=== PATIENT | female | born 1930 | race Caucasian/White ===

== ENCOUNTER 2016-07-03 19:37 | Inpatient (IN) | payer MEDICARE, BC, MEDICAID ==
[~2016-07-03 19:37] MED LIST: ALBUTEROL2.5 MG/3 M INH; ASPIR 8181 M1 PO; CALCIUM 500 +1 EA10 PO; MAGNESIUM OXID400 M1 PO; METOPROLOL TART25 M1 PO; POTASSIUM CHLO20 ME3 PO; TORSEMIDE20 M2 PO; VITAMIN D32000 UNI2 PO; ZOLOFT50 M1 PO
[2016-07-03] MEDS ORDERED: ALLOPURINOL100 M1 PO (20:14)
[2016-07-03] MEDS ORDERED: ACETAMINOPHEN650 MG PR (20:15)
[2016-07-03] MEDS ORDERED: TYLENOL325 M2 PO (20:16)
[2016-07-03] MEDS ORDERED: NITROSTAT0.4 M1 SL (20:17)
[2016-07-03] MEDS ORDERED: MILK OF MAGNESIA PO (20:18)
[2016-07-03] MEDS ORDERED: HYDROCORTISON28.411 TP ×2 (20:18→20:19)
[2016-07-03 20:47] LABS: ARTERIAL BLD GAS O2 SATURATION 98 % (95-98); ARTERIAL PO2 107 mmHg (70-100); BICARBONATE 42 mmol/L (21-28); BLOOD GAS BASE EXCESS 12 mM/L (-/+3); PH 7.24 Units (7.35-7.45)
[2016-07-03 20:50] LABS: ARTERIAL BLOOD GAS PCO2 102 mmHg (32-45)
[2016-07-03 20:51] LABS: ABG CO2 ARTERIAL 45 mmol/L (21-27)
[2016-07-03 22:29] LABS: ARTERIAL BLD GAS O2 SATURATION 99 % (95-98); ARTERIAL PO2 112 mmHg (70-100); BICARBONATE 42 mmol/L (21-28); BLOOD GAS BASE EXCESS 12 mM/L (-/+3); PH 7.27 Units (7.35-7.45)
[2016-07-03 22:30] LABS: ARTERIAL BLOOD GAS PCO2 94 mmHg (32-45)
[2016-07-03 22:31] LABS: ABG CO2 ARTERIAL 45 mmol/L (21-27)
[2016-07-04 00:40] LABS: INR 0.9 INR (0.9-1.1); PROTHROMBIN TIME 10.8 SECONDS (9.0-13.6)
[2016-07-04 03:45] LABS: URINE BILIRUBIN NEGATIVE (NEG); URINE BLOOD MODERATE (NEG); URINE GLUCOSE (UA) NEGATIVE (NEG); URINE KETONE NEGATIVE (NEG); URINE LEUKOCYTE ESTERASE POSITIVE (NEG); URINE NITRITE NEGATIVE (NEG); URINE PROTEIN NEGATIVE (NEG); URINE SPECIFIC GRAVITY 1.015 (1.003-1.030)
[2016-07-04 03:56] LABS: URINE APPEARANCE HAZY; URINE COLOR YELLOW
[2016-07-04 04:34] LABS: URINE WBC 20-50 /[HPF] (0-5)
[2016-07-04 04:35] LABS: URINE BACTERIA 2+; URINE EPITHELIAL CELLS 0-1 /[HPF] (0-10)
[2016-07-04 05:38] LABS: ARTERIAL BLD GAS O2 SATURATION 96 % (95-98); BICARBONATE 43 mmol/L (21-28); BLOOD GAS BASE EXCESS 14 mM/L (-/+3); PH 7.33 Units (7.35-7.45)
[2016-07-04 05:40] LABS: ARTERIAL PO2 77 mmHg (70-100)
[2016-07-04 05:41] LABS: ARTERIAL BLOOD GAS PCO2 84 mmHg (32-45)
[2016-07-04 05:42] LABS: ABG CO2 ARTERIAL 45 mmol/L (21-27)
[2016-07-04 06:59] LABS: BASO % 0.2 % (0-2); EOS % 1.4 % (0-7); EOSINOPHIL ABSOLUTE COUNT 0.2 tho/cmm (0.0-0.7); HCT-HEMATOCRIT 33.6 % (34.0-49.0); HGB-HEMOGLOBIN 9.7 gm/dl (12.0-15.5); IMMATURE GRANULOCYTES ABSOLUTE 0.05 tho/cmm (0-0.03); IMMATURE GRANULOCYTES PERCENT 0.4 % (0-0.3); LYMPH ABSOLUTE COUNT 0.7 tho/cmm (0.8-4.5); MCH (MEAN CORPUSCULAR HGB) 30.8 pg (28.0-32.0); MCV (MEAN CELL VOLUME) 106.7 fl (82.0-96.0); MEAN PLATELET VOLUME 10.1 cmc (9.4-12.4); MONO % 7.5 % (0-12); MONOCYTE ABSOLUTE COUNT 0.9 tho/cmm (0.0-1.2); NEUTROPHIL ABSOLUTE COUNT 10.2 tho/cmm (1.6-8.0); NEUTROPHIL-AUTOMATED 10.2 tho/cmm (1.6-8.0); NEUTROPHILS % 84.5 % (40-80); PLATELET COUNT 254 tho/cmm (150-450); RED BLOOD COUNT 3.15 mil/cmm (4.00-5.20); RED CELL DISTRIBUTION WIDTH 14.3 % (12.4-16.4); WHITE BLOOD COUNT 12.1 tho/cmm (4.0-10.0)
[2016-07-04 07:08] LABS: ALB/GLOB RATIO 0.6 (0.8-2.0); ALBUMIN 2.3 g/dl (3.5-5.0); ALKALINE PHOSPHATASE 74 U/L (33-138); ALT/SGPT 23 U/L (12-78); ANION GAP 7 mmol/L (0-20); AST/SGOT 24 U/L (10-40); BILIRUBIN,TOTAL 0.4 mg/dl (0-1.5); BLOOD UREA NITROGEN 50 mg/dl (6-24); C-REACTIVE PROTEIN 5.5 mg/dl (0-0.9); CALCIUM 9.8 mg/dl (8.5-10.5); CHLORIDE 100 mmol/l (96-110); CREATININE 1.59 mg/dl (0.50-1.10); GLUCOSE 95 mg/dL (70-110); POTASSIUM 4.1 mmol/L (3.7-5.1); SODIUM 146 mmol/L (135-145); eGFR VALUE FOR BLACK 34 mL/Min
[2016-07-04 07:15] LABS: CARBON DIOXIDE-VENOUS 43 mmol/L (22-32)
[2016-07-04 07:23] LABS: MCHC MEAN CORPUSCULAR HGB CONC 28.9 % (32.0-36.0)
[2016-07-04 10:34] LABS: PROCALCITONIN <0.05 ng/ml (0.05-0.09)
[2016-07-05 04:38] LABS: ANION GAP 11 mmol/L (0-20); BLOOD UREA NITROGEN 51 mg/dl (6-24); CALCIUM 9.8 mg/dl (8.5-10.5); CARBON DIOXIDE-VENOUS 37 mmol/L (22-32); CHLORIDE 96 mmol/l (96-110); CREATININE 1.89 mg/dl (0.50-1.10); POTASSIUM 4.2 mmol/L (3.7-5.1); SODIUM 140 mmol/L (135-145); eGFR VALUE FOR BLACK 28 mL/Min
[2016-07-05 04:39] LABS: GLUCOSE 153 mg/dL (70-110)
[2016-07-05 07:23] LABS: ARTERIAL BLD GAS O2 SATURATION 89 % (95-98); BLOOD GAS BASE EXCESS 12 mM/L (-/+3)
[2016-07-05 07:28] LABS: ABG CO2 ARTERIAL 38 mmol/L (21-27); ARTERIAL BLOOD GAS PCO2 50 mmHg (32-45); ARTERIAL PO2 54 mmHg (70-100); BICARBONATE 36 mmol/L (21-28); PH 7.48 Units (7.35-7.45)
[2016-07-05 12:29] LABS: BASO % 0.1 % (0-2); HCT-HEMATOCRIT 31.6 % (34.0-49.0); HGB-HEMOGLOBIN 9.8 gm/dl (12.0-15.5); IMMATURE GRANULOCYTES ABSOLUTE 0.05 tho/cmm (0-0.03); IMMATURE GRANULOCYTES PERCENT 0.4 % (0-0.3); LYMPH % 2.8 % (20-45); LYMPH ABSOLUTE COUNT 0.4 tho/cmm (0.8-4.5); MCH (MEAN CORPUSCULAR HGB) 31.1 pg (28.0-32.0); MEAN PLATELET VOLUME 10.1 cmc (9.4-12.4); MONO % 0.8 % (0-12); MONOCYTE ABSOLUTE COUNT 0.1 tho/cmm (0.0-1.2); NEUTROPHIL ABSOLUTE COUNT 12.4 tho/cmm (1.6-8.0); NEUTROPHIL-AUTOMATED 12.4 tho/cmm (1.6-8.0); NEUTROPHILS % 95.9 % (40-80); PLATELET COUNT 248 tho/cmm (150-450); RED BLOOD COUNT 3.15 mil/cmm (4.00-5.20); RED CELL DISTRIBUTION WIDTH 14.3 % (12.4-16.4); WHITE BLOOD COUNT 12.9 tho/cmm (4.0-10.0)
[2016-07-05 12:30] LABS: MCV (MEAN CELL VOLUME) 100.3 fl (82.0-96.0)
[2016-07-05 16:02] LABS: BODY FLUID TYPE PLEURAL
[2016-07-05 16:03] LABS: BODY FLUID APPEARANCE CLOUDY (CLEAR); BODY FLUID COLOR YELLOW (COLORLESS); BODY FLUID RBC COUNT 4000 cmm (0); BODY FLUID VOLUME 750 ml; BODY FLUID WBC COUNT 569 cmm
[2016-07-05 17:11] LABS: BODY FLUID LYMPHOCYTES 69 %; BODY FLUID MACROPHAGES 18 %; BODY FLUID MESOTHELIAL CELLS 7 %; BODY FLUID NEUTROPHILS 6 %
[2016-07-06 05:35] LABS: HGB-HEMOGLOBIN 8.9 gm/dl (12.0-15.5); PLATELET COUNT 244 tho/cmm (150-450)
[2016-07-06 05:49] LABS: ANION GAP 13 mmol/L (0-20); BLOOD UREA NITROGEN 54 mg/dl (6-24); CARBON DIOXIDE-VENOUS 36 mmol/L (22-32); CHLORIDE 94 mmol/l (96-110); CREATININE 1.98 mg/dl (0.50-1.10); GLUCOSE 211 mg/dL (70-110); SODIUM 140 mmol/L (135-145); eGFR VALUE FOR BLACK 26 mL/Min
[2016-07-06 05:50] LABS: POTASSIUM 3.2 mmol/L (3.7-5.1)
[2016-07-06 06:22] LABS: ABG CO2 ARTERIAL 38 mmol/L (21-27); ARTERIAL BLOOD GAS PCO2 47 mmHg (32-45); BICARBONATE 36 mmol/L (21-28); BLOOD GAS BASE EXCESS 12 mM/L (-/+3)
[2016-07-06 06:23] LABS: ARTERIAL BLD GAS O2 SATURATION 99 % (95-98); ARTERIAL PO2 105 mmHg (70-100)
[2016-07-06 10:23] LABS: BASO % 0.1 % (0-2); HCT-HEMATOCRIT 30.7 % (34.0-49.0); HGB-HEMOGLOBIN 9.6 gm/dl (12.0-15.5); IMMATURE GRANULOCYTES ABSOLUTE 0.06 tho/cmm (0-0.03); IMMATURE GRANULOCYTES PERCENT 0.4 % (0-0.3); LYMPH % 1.3 % (20-45); LYMPH ABSOLUTE COUNT 0.2 tho/cmm (0.8-4.5); MCHC MEAN CORPUSCULAR HGB CONC 31.3 % (32.0-36.0); MEAN PLATELET VOLUME 10.4 cmc (9.4-12.4); MONO % 2.2 % (0-12); MONOCYTE ABSOLUTE COUNT 0.3 tho/cmm (0.0-1.2); NEUTROPHIL ABSOLUTE COUNT 13.7 tho/cmm (1.6-8.0); NEUTROPHIL-AUTOMATED 13.7 tho/cmm (1.6-8.0); PLATELET COUNT 250 tho/cmm (150-450); RED CELL DISTRIBUTION WIDTH 14.3 % (12.4-16.4); WHITE BLOOD COUNT 14.3 tho/cmm (4.0-10.0)
[2016-07-06 10:30] LABS: ANION GAP 12 mmol/L (0-20); BLOOD UREA NITROGEN 53 mg/dl (6-24); CARBON DIOXIDE-VENOUS 36 mmol/L (22-32); CHLORIDE 98 mmol/l (96-110); CREATININE 1.96 mg/dl (0.50-1.10); GLUCOSE 219 mg/dL (70-110); MAGNESIUM 1.7 mg/dl (1.8-2.6); POTASSIUM 3.1 mmol/L (3.7-5.1); SODIUM 143 mmol/L (135-145); eGFR VALUE FOR BLACK 27 mL/Min
[2016-07-06 10:48] LABS: PROCALCITONIN <0.05 ng/ml (0.05-0.09)
[2016-07-07 04:25] LABS: ABG CO2 ARTERIAL 36 mmol/L (21-27); ARTERIAL BLD GAS O2 SATURATION 96 % (95-98); BICARBONATE 35 mmol/L (21-28); BLOOD GAS BASE EXCESS 9 mM/L (-/+3)
[2016-07-07 04:28] LABS: ARTERIAL BLOOD GAS PCO2 57 mmHg (32-45); ARTERIAL PO2 76 mmHg (70-100)
[2016-07-07 06:59] LABS: HCT-HEMATOCRIT 30.7 % (34.0-49.0); HGB-HEMOGLOBIN 8.9 gm/dl (12.0-15.5); RED CELL DISTRIBUTION WIDTH 14.3 % (12.4-16.4)
[2016-07-08 04:12] LABS: HCT-HEMATOCRIT 30.5 % (34.0-49.0); IMMATURE GRANULOCYTES ABSOLUTE 0.16 tho/cmm (0-0.03); IMMATURE GRANULOCYTES PERCENT 1.1 % (0-0.3); LYMPH % 1.9 % (20-45); LYMPH ABSOLUTE COUNT 0.3 tho/cmm (0.8-4.5); MCH (MEAN CORPUSCULAR HGB) 30.4 pg (28.0-32.0); MCHC MEAN CORPUSCULAR HGB CONC 29.5 % (32.0-36.0); MEAN PLATELET VOLUME 10.1 cmc (9.4-12.4); MONO % 2.3 % (0-12); MONOCYTE ABSOLUTE COUNT 0.3 tho/cmm (0.0-1.2); NEUTROPHIL ABSOLUTE COUNT 13.8 tho/cmm (1.6-8.0); NEUTROPHIL-AUTOMATED 13.8 tho/cmm (1.6-8.0); NEUTROPHILS % 94.7 % (40-80); PLATELET COUNT 191 tho/cmm (150-450); RED BLOOD COUNT 2.96 mil/cmm (4.00-5.20); RED CELL DISTRIBUTION WIDTH 14.7 % (12.4-16.4); WHITE BLOOD COUNT 14.5 tho/cmm (4.0-10.0)
[2016-07-08 04:25] LABS: ANION GAP 8 mmol/L (0-20); BLOOD UREA NITROGEN 52 mg/dl (6-24); CARBON DIOXIDE-VENOUS 37 mmol/L (22-32); CHLORIDE 101 mmol/l (96-110); CREATININE 1.93 mg/dl (0.50-1.10); GLUCOSE 198 mg/dL (70-110); MAGNESIUM 2.3 mg/dl (1.8-2.6); PHOSPHOROUS 3.1 mg/dl (2.5-4.9); POTASSIUM 3.4 mmol/L (3.7-5.1); SODIUM 143 mmol/L (135-145); eGFR VALUE FOR BLACK 27 mL/Min
[2016-07-09 04:32] LABS: ANION GAP 11 mmol/L (0-20); BLOOD UREA NITROGEN 53 mg/dl (6-24); CALCIUM 8.7 mg/dl (8.5-10.5); CARBON DIOXIDE-VENOUS 36 mmol/L (22-32); CHLORIDE 97 mmol/l (96-110); CREATININE 1.84 mg/dl (0.50-1.10); GLUCOSE 227 mg/dL (70-110); POTASSIUM 3.5 mmol/L (3.7-5.1); SODIUM 140 mmol/L (135-145); eGFR VALUE FOR BLACK 29 mL/Min
[2016-07-09 08:57] LABS: ABG CO2 ARTERIAL 36 mmol/L (21-27); ARTERIAL BLD GAS O2 SATURATION 94 % (95-98); ARTERIAL BLOOD GAS PCO2 65 mmHg (32-45); ARTERIAL PO2 65 mmHg (70-100); BICARBONATE 34 mmol/L (21-28); BLOOD GAS BASE EXCESS 8 mM/L (-/+3); PH 7.34 Units (7.35-7.45)
[2016-07-11 05:32] LABS: BASO % 0.1 % (0-2); HCT-HEMATOCRIT 31.1 % (34.0-49.0); HGB-HEMOGLOBIN 9.7 gm/dl (12.0-15.5); IMMATURE GRANULOCYTES ABSOLUTE 0.35 tho/cmm (0-0.03); IMMATURE GRANULOCYTES PERCENT 1.3 % (0-0.3); LYMPH % 4.3 % (20-45); LYMPH ABSOLUTE COUNT 1.1 tho/cmm (0.8-4.5); MCH (MEAN CORPUSCULAR HGB) 30.9 pg (28.0-32.0); MCHC MEAN CORPUSCULAR HGB CONC 31.2 % (32.0-36.0); MONO % 3.5 % (0-12); MONOCYTE ABSOLUTE COUNT 0.9 tho/cmm (0.0-1.2); NEUTROPHIL ABSOLUTE COUNT 23.8 tho/cmm (1.6-8.0); NEUTROPHIL-AUTOMATED 23.8 tho/cmm (1.6-8.0); NEUTROPHILS % 90.8 % (40-80); PLATELET COUNT 179 tho/cmm (150-450); RED BLOOD COUNT 3.14 mil/cmm (4.00-5.20); RED CELL DISTRIBUTION WIDTH 14.7 % (12.4-16.4); WHITE BLOOD COUNT 26.2 tho/cmm (4.0-10.0)
[2016-07-11 05:41] LABS: ALBUMIN 2.4 g/dl (3.5-5.0); ANION GAP 13 mmol/L (0-20); BLOOD UREA NITROGEN 52 mg/dl (6-24); CALCIUM 8.9 mg/dl (8.5-10.5); CARBON DIOXIDE-VENOUS 34 mmol/L (22-32); CHLORIDE 96 mmol/l (96-110); CREATININE 1.77 mg/dl (0.50-1.10); GLUCOSE 232 mg/dL (70-110); PHOSPHOROUS 2.1 mg/dl (2.5-4.9); POTASSIUM 3.2 mmol/L (3.7-5.1); SODIUM 140 mmol/L (135-145); eGFR VALUE FOR BLACK 30 mL/Min
[2016-07-12 04:57] LABS: HCT-HEMATOCRIT 28.1 % (34.0-49.0); HGB-HEMOGLOBIN 8.8 gm/dl (12.0-15.5); MCH (MEAN CORPUSCULAR HGB) 30.8 pg (28.0-32.0); MCHC MEAN CORPUSCULAR HGB CONC 31.3 % (32.0-36.0); MCV (MEAN CELL VOLUME) 98.3 fl (82.0-96.0); MEAN PLATELET VOLUME 11.3 cmc (9.4-12.4); NEUTROPHIL-AUTOMATED 23.8 tho/cmm (1.6-8.0); PLATELET COUNT 155 tho/cmm (150-450); RED BLOOD COUNT 2.86 mil/cmm (4.00-5.20); RED CELL DISTRIBUTION WIDTH 14.7 % (12.4-16.4); WHITE BLOOD COUNT 25.2 tho/cmm (4.0-10.0)
[2016-07-12 05:10] LABS: ANION GAP 12 mmol/L (0-20); BLOOD UREA NITROGEN 50 mg/dl (6-24); CALCIUM 8.2 mg/dl (8.5-10.5); CARBON DIOXIDE-VENOUS 32 mmol/L (22-32); CHLORIDE 101 mmol/l (96-110); CREATININE 1.62 mg/dl (0.50-1.10); GLUCOSE 300 mg/dL (70-110); PHOSPHOROUS 3.2 mg/dl (2.5-4.9); SODIUM 140 mmol/L (135-145); eGFR VALUE FOR BLACK 34 mL/Min
[2016-07-12 05:22] LABS: POTASSIUM 4.9 mmol/L (3.7-5.1)
[2016-07-12 08:21] LABS: BAND % 2 % (0-20); BAND ABSOLUTE COUNT 0.5 tho/cmm (0-2.0)
[2016-07-12 22:06] LABS: MAGNESIUM 1.6 mg/dl (1.8-2.6); POTASSIUM 4.3 mmol/L (3.7-5.1)
[2016-07-14] MEDS ORDERED: METOPROLOL SUCC25 M1 PO (12:53)
[2016-07-14] MEDS ORDERED: AMILORIDE HCL5 M1 PO (12:56)
[2016-07-14] MEDS ORDERED: GUAIFENESIN PO (12:57)
[2016-07-14] MEDS ORDERED: POLYETHYLENE G255 G1 PO (12:57)
[2016-07-14] MEDS ORDERED: PREDNISONE20 M1 PO (12:58)
[2016-07-14] MEDS ORDERED: COLACE100 M1 PO (12:58)
[2016-07-14] MEDS ORDERED: NOVOLOG100 UNITS/ SC (13:00)
[2016-07-14] MEDS ORDERED: LEVEMIR100 UNITS/ SC (13:01)
[2016-07-14] MEDS ORDERED: ELIQUIS2.5 M1 PO (13:03)
[2016-07-14] MEDS ORDERED: IPRAT-ALBUT 0.5-3 ML INH (13:11)
== END 2016-07-14 14:30 | DRG 291 ==
LOC: PCUA 19:37
PROVIDERS: Hospitalist; Internal Medicine; Internal Medicine Cardiovascular Disease; Internal Medicine Nephrology; Internal Medicine Pulmonary Disease; Physician Assistant; Registered Nurse; ADMIT Family Medicine
PROC: 5A09357 Assistance with Respiratory Ventilation, Less than 24 Consecutive Hours, Continuous Positive Airway Pressure (ICD-10-PCS; 2016-07-03)
PROC: 02HV33Z Insertion of Infusion Device into Superior Vena Cava, Percutaneous Approach (ICD-10-PCS; 2016-07-04)
PROC: 0W9B3ZZ Drainage of Left Pleural Cavity, Percutaneous Approach (ICD-10-PCS; principal; 2016-07-05)
DX: I13.0 Hypertensive heart and chronic kidney disease with heart failure and stage 1 through stage 4 chronic kidney disease, or unspecified chronic kidney disease (principal); I50.33 Acute on chronic diastolic (congestive) heart failure; G93.40 Encephalopathy, unspecified; J96.01 Acute respiratory failure with hypoxia; J96.02 Acute respiratory failure with hypercapnia; N17.9 Acute kidney failure, unspecified; N18.4 Chronic kidney disease, stage 4 (severe); E87.3 Alkalosis; R13.10 Dysphagia, unspecified; J91.8 Pleural effusion in other conditions classified elsewhere; N39.0 Urinary tract infection, site not specified; E66.2 Morbid (severe) obesity with alveolar hypoventilation; Z68.41 Body mass index [BMI] 40.0-44.9, adult; N18.9 Chronic kidney disease, unspecified; D72.829 Elevated white blood cell count, unspecified; T38.0X5A Adverse effect of glucocorticoids and synthetic analogues, initial encounter; I48.91 Unspecified atrial fibrillation; Z79.01 Long term (current) use of anticoagulants; D63.1 Anemia in chronic kidney disease; J44.9 Chronic obstructive pulmonary disease, unspecified; Z99.81 Dependence on supplemental oxygen; F32.9 Major depressive disorder, single episode, unspecified; I73.9 Peripheral vascular disease, unspecified; Z85.53 Personal history of malignant neoplasm of renal pelvis; Z88.2 Allergy status to sulfonamides; Z88.8 Allergy status to other drugs, medicaments and biological substances; Z79.82 Long term (current) use of aspirin; E11.65 Type 2 diabetes mellitus with hyperglycemia; E11.22 Type 2 diabetes mellitus with diabetic chronic kidney disease; Z87.891 Personal history of nicotine dependence; Z66 Do not resuscitate; E87.6 Hypokalemia; T50.2X5A Adverse effect of carbonic-anhydrase inhibitors, benzothiadiazides and other diuretics, initial encounter; Y92.239 Unspecified place in hospital as the place of occurrence of the external cause; B96.89 Other specified bacterial agents as the cause of diseases classified elsewhere; I89.0 Lymphedema, not elsewhere classified; E83.39 Other disorders of phosphorus metabolism
CPT/HCPCS: C1751; G8996-GN-CL; G8997-GN-CL; J0456; J1650; J1815; J1940; J2543; J2920; J2930; J3475; J7050; J7512; P9047